=== PATIENT | female | born 1975 | race Caucasian/White ===

== ENCOUNTER 2018-09-13 07:37 | Outpatient (CLI) | payer OTHER ==
[2018-09-13] MEDS ORDERED: ARIP5TAB13 PO (08:12)
[2018-09-13] MEDS ORDERED: LAMO100T PO (08:12)
[2018-09-13] MEDS ORDERED: ESCI10TA PO (08:12)
[2018-09-13] MEDS ORDERED: TRAZ50TA66 PO (08:12)
[2018-09-13] MEDS ORDERED: LAMO25TA PO (08:12)
== END 2018-09-13 23:59 | disposition home or self-care (01) ==
LOC: STAR 07:37
PROVIDERS: ATTEND Obstetrics & Gynecology Female Pelvic Medicine and Reconstructive Surgery
DX: Z02.9 Encounter for administrative examinations, unspecified (principal)

== ENCOUNTER 2018-09-20 09:26 | Day surgery (SDC) | payer OTHER ==
[2018-09-13 08:07] VITALS: BP 89/64
[~2018-09-20] VITALS: Ht 157.5 cm; Wt 59.9 kg
[~2018-09-20 09:26] MED LIST: ARIP5TAB13 PO; BUPIVACAINE/PF 0.25% ONE; EPINEPHRINE 1 MG/ML, 1ML ONE; ESCI10TA PO; LAMO100T PO; LAMO25TA PO; NEOMY/POLYMYXIN B GU IRR. 1 ML ONE; TRAZ50TA66 PO
[2018-09-20] MEDS ORDERED: LACTATED RINGERS 1,000 ML IV SCH (10:00)
[2018-09-20] MEDS ORDERED: ACETAMINOPHEN 500 MG TABLET PO ONE (12:00)
[2018-09-20] MEDS ORDERED: OXYcodone IR 5MG TABLET PO ONE (12:00)
[2018-09-20] MEDS ORDERED: METOCLOPRAMIDE 5 MG/ML, 2ML IVPush ONE (12:00)
[2018-09-20] MEDS ORDERED: GABAPENTIN 300 MG CAPSULE PO ONE (12:00)
[2018-09-20] MEDS ORDERED: HYDROmorphone 1 MG/ML, 1ML IV PRN (13:30)
[2018-09-20] MEDS ORDERED: FENTANYL PF 100 MCG/2ML IV PRN (13:30)
[2018-09-20] MEDS ORDERED: OXYcodone 5 MG/5 ML ORAL.SOL UDC PO PRN (13:30)
[2018-09-20] MEDS ORDERED: MEPERIDINE/PF 25MG/0.5ML IVPush PRN (13:30)
[2018-09-20] MEDS ORDERED: MIDAZOLAM 1 MG/ML, 2ML IV PRN (13:30)
[2018-09-20] MEDS ORDERED: LABETALOL 5MG/ML, 20ML IV PRN (13:30)
[2018-09-20] MEDS ORDERED: ONDANSETRON 2MG/ML, 2ML IVPush PRN (13:30)
[2018-09-20] MEDS ORDERED: PROPOFOL 10 MG/ML, 20ML ONE (13:41)
[2018-09-20] MEDS ORDERED: DEXAMETHASONE 4 MG/ML, 1ML ONE (13:41)
[2018-09-20] MEDS ORDERED: ONDANSETRON 2MG/ML, 2ML ONE (13:41)
[2018-09-20] MEDS ORDERED: CEFAZOLIN 1,000 MG ONE (13:41)
[2018-09-20] MEDS ORDERED: FENTANYL PF 100 MCG/2ML ONE ×2 (13:49→14:52)
[2018-09-20] MEDS ORDERED: MIDAZOLAM 1 MG/ML, 2ML ONE (13:49)
[2018-09-20] MEDS ORDERED: BUPIVACAINE/PF 0.25% ONE (14:02)
[2018-09-20] MEDS ORDERED: FUROSEMIDE 20 MG/2 ML ONE (14:20)
[2018-09-20] MEDS ORDERED: OXYcodone 5 MG/5 ML ORAL.SOL UDC ONE (14:52)
== END 2018-09-20 16:35 | disposition home or self-care (01) ==
LOC: OUT 09:26
PROVIDERS: ATTEND Obstetrics & Gynecology Female Pelvic Medicine and Reconstructive Surgery
DX: N81.89 Other female genital prolapse (principal); N81.10 Cystocele, unspecified; N39.46 Mixed incontinence; N32.81 Overactive bladder; F32.9 Major depressive disorder, single episode, unspecified; Z98.890 Other specified postprocedural states
CPT/HCPCS: 57265; 57282; 57288; 57530; 88307; C1771; J0171; J0690; J1100; J1940; J2250; J2405; J2704; J2765; J3010; J3490; J7120